=== PATIENT | male | born 1940 | race Caucasian/White ===

== ENCOUNTER → 2017-03-12 | Day surgery (SDC) | payer OTHER, MEDICARE ==
[~2017-03-12] VITALS: Ht 177.8 cm; Wt 82.6 kg
[~2017-03-12] MED LIST: ALLOPURINOL300 M1 PO; ASPIRIN EC81 M1 PO; NIASPAN500 M1 PO; PANTOPRAZOLE SO40 M1 PO; VALSARTAN80 M1 PO; VYTORIN 10-201 EACH PO
--- NOTE | 2017-03-12 16:49 | Operative Report ---
Operative/Inv Procedure Report Surgery Date: 03/12/17 Name of Procedure: Laparoscopic bilateral inguinal hernia repair Pre-Operative Diagnosis: Bilateral inguinal hernia Post-Operative Diagnosis: Same Estimated Blood Loss: scant Surgeon/Truck Driver Teamster: TOM PETERS,ALYSSA Lara/Rubina BRUCE Anesthesia: general endotracheal tube Implants: Parietex mesh Operative/Procedure Note Note: After consent patient is brought to the operating room laid supine. General anesthesia was obtained and the abdomen was prepped and draped. Skin was anesthetized with local anesthesia and a transverse infraumbilical incision made sharply. We identified the rectus fascia and incised transversely. Stay sutures were placed. Rectus muscle was retracted laterally and a dissecting balloon placed posterior to it. It was inflated under direct vision the camera and replaced with a blunt Howell port. Gas was instilled. 2, 5 mm ports were placed in the infraumbilical midline after local anesthesia was instilled and under direct vision and camera. Began our dissection at the pubis and delineated the symphysis. Adam's ligament was identified and cleared. Then dissected laterally and developed the iliopubic tract. The cord structures were circumferentially dissected. There was an indirect sac on the right side with associated cord lipoma. Both were reduced and reflected medially. Once the dissection was completed a right-sided piece of Parietex mesh was placed in the cavity. It was placed around the cord structures re-create the internal ring and cover the femoral and direct spaces as well. It was tacked medially with the observer tackers to keep it in position while we then turned attention to the contralateral side. In a similar fashion the dissection was carried forth. There was a moderate size indirect hernia containing pre-peritoneal fat. The tissue was delivered and reflected medially. Left-sided mesh was placed in a similar fashion. Gas was allowed to escape on maintaining proper orientation of the mesh. The fascia was closed with 0 Vicryl suture. Skin incisions closed with 4-0 Vicryl. Steri-Strips and sterile dressing applied. Sponge and needle counts are correct. Findings: Indirect CC: KIA PETERS,LIV Stevenson; FLAVIO PETERS PhD,ANGELICA Sommer
== END ==
LOC: STS 03:01
DX: K40.20 Bilateral inguinal hernia, without obstruction or gangrene, not specified as recurrent (principal); I10 Essential (primary) hypertension; M10.9 Gout, unspecified; E78.5 Hyperlipidemia, unspecified; I25.10 Atherosclerotic heart disease of native coronary artery without angina pectoris; I25.2 Old myocardial infarction; Z85.810 Personal history of malignant neoplasm of tongue
CPT/HCPCS: C1781; C9399; J0131; J0690; J2250